=== PATIENT | female | born 2000 | race Caucasian/White ===

== ENCOUNTER 2021-05-31 12:03 | Emergency (ER) | payer BC, SELFPAY ==
[2021-05-31 12:26] VITALS: BP 138/86; PULSE 107; RESP 16; TEMP 36.9; O2SAT 100
--- NOTE | 2021-05-31 13:37 | ED_ITS ---
HPI - Chest Pain General Chief Complaint: Upper Respiratory Infection Stated Complaint: cough and chest neck and back pain Source: patient and RN notes reviewed Limitations: no limitations History of Present Illness HPI narrative: The unvaccinated patient, previously mostly healthy occ drinker/vaper/pot smoker, presents parasternal chest pain and occasional cough with chills. No fever, wheeze, calf pain/edema, lifting/overuse, loss of t aste/smell, S OB, wheezing/sneezing.Symptoms are mild, worse with deep breathing. Also mentions that she has been constipated, without abdominal pain, vomiting Related Data Allergies Allergy/AdvReac Type Severity Reaction Status Date / Time No Known Allergies Allergy Verified 05/31/21 12:50 Review of Systems Review of Systems: she comments also has some occasional tooth ache General/Constitutional: No weight loss,fever Eyes: N0: Redness,discharge Ears/Nose/Throat: No: Epistaxis,ear discharge Respiratory: Denies: Hemoptysis Gastrointestinal: No Vomiting, Bleeding-rectal Skin: No Lumps, eruption Neurologic: No Focal Weakness,Sz Hematologic: Denies: Petechiae/Purpura Psychiatric: No: Suicida ideationl All Other Systems: Reviewed and Negative PMFSH Comments At time of signature, agree with nursing past medical, surgical, social and family history. There is no relevant family history pertinent to the presenting complaint Exam Narrative: General Appearance: Well appearing, No distress EYE: PERRLA, Conjunctiva clear Ears: External ear normal Nose: Normal nose Mouth/Throat: Normal appearing, Normal lips Neck: Supple Respiratory: Airway patent, No respiratory distress, CTA, tender chest wall at sternum Cardiovascular: RRR Abdomen: Soft, Non-tender, N Musculoskeletal: Full ROM Skin: Warm, Dry Neurological: A&O x3, CN II-X intact Psychiatric: Normal mood, Normal affect Course Vital Signs Vital signs: Vital Signs Temperature 98.5 F 05/31/21 12:26 Pulse Rate 107 H 05/31/21 12:26 Respiratory Rate 16 05/31/21 12:26 Blood Pressure 138/86 05/31/21 12:26 Pulse Oximetry 100 05/31/21 12:26 Temperature 98.5 F 05/31/21 12:26 Pulse Rate 107 H 05/31/21 12:26 Respiratory Rate 16 05/31/21 12:26 Blood Pressure 138/86 05/31/21 12:26 Pulse Oximetry 100 05/31/21 12:26 MDM - Chest Pain Lab Data Labs: Lab Results 05/31/21 Range/Units 12:25 POC SARS CoV-2 Ag Negative (Negative) Strep Screen Presumptive Negative *(Reference Range: Negative)* Discharge Plan Discharge Clinical Impression: Pain, chest wall Patient Disposition: Home, Self-Care Condition: Stable Instructions: Costochondritis (ED) Prescriptions: New prednisone 20 mg tablet 60 mg PO DAILY Qty: 9 RF: 0 tramadol 50 mg tablet 50 - 75 mg PO BID PRN (Reason: pain) Qty: 14 RF: 0 Follow-up/Referrals: PHYSICIAN,CHIEF LEARNING OFFICER [Primary Care Provider] -
== END 2021-05-31 13:05 | disposition home or self-care (01) ==
PROVIDERS: Emergency Provider Emergency Medicine
DX: R07.89 Other chest pain (principal); Z20.822 Contact with and (suspected) exposure to COVID-19
CPT/HCPCS: 87081; 87426; 87880; 99203; C9803; G0463